=== PATIENT | male | born 1995 | race Caucasian/White ===

== ENCOUNTER 2023-10-19 22:48 | Emergency (ER) | payer OTHER ==
--- NOTE | 2023-10-19 23:21 | ED Physician Documentation ---
History of Present Illness - Stated complaint Stated Complaint: SOA - Chief complaint Chief Complaint: Resp - History obtained from History obtained from: Patient - Additonal information Additional information: 27-year-old man with no past medical history, with family history of asthma in siblings, presents with 4 to 5 hours of shortness of breath, audible wheezing, coughing with end expiration that is nonproductive. Also with nasal congestion that he states is chronic. Denies fever, chest pain, pleurisy, leg swelling, calf pain, hemoptysis, use of steroids. He did travel from [place] by car. Review of Systems Constitutional: denies: Fever, Chills Nose: reports: Congestion. denies: Rhinorrhea / runny nose Throat: denies: Sore throat Cardiac: denies: Chest pain / pressure, Palpitations, Pedal edema, Calf pain Respiratory: reports: Dyspnea, Cough, Wheezing. denies: Hemoptysis GI: denies: Abdominal Pain, Nausea, Vomiting PD PAST MEDICAL HISTORY - Past Medical History Past Medical History: No - Past Surgical History Past Surgical History: No - Present Medications Home Medications: Ambulatory Orders Medication Instructions Recorded Confirmed Albuterol Sulf [Ventolin Hfa 1 - 2 puffs INH Q4HR PRN #18 gm 10/19/23 Inhaler] - Allergies Allergies/Adverse Reactions: Allergies Allergy/AdvReac Type Severity Reaction Status Date / Time No Known Drug Allergies Allergy Verified 10/19/23 22:58 - Social History Does the pt smoke?: No Smoking Status: Never smoker Does the pt drink ETOH?: No Does the pt have substance abuse?: No - Immunizations Immunizations are current?: Yes - POLST Patient has POLST: No PD ED PE NORMAL - Vitals Vital signs reviewed: Yes - General General: Alert and oriented X 3, No acute distress, Well developed/nourished - HEENT HEENT: Atraumatic, PERRL, EOMI, Moist mucous membranes, Pharynx benign - Neck Neck: Supple, no meningeal sign - Cardiac Cardiac: RRR - Respiratory Respiratory: No respiratory distress, Other (Bilateral end expiratory wheezing. No increased work of breathing) - Derm Derm: Normal color, Warm and dry - Extremities Extremities: No deformity, No tenderness to palpate, No edema, No calf tenderness / cord Results - Vitals Vitals: Vital Signs - 24 hr 02/10/19/23 10/19/23 22:50 23:00 23:35 Temperature 36.0 C L Heart Rate 73 75 72 Respiratory 20 20 22 Rate Blood Pressure 164/92 H 159/82 H 144/78 H O2 Saturation 95 96 94 10/20/23 10/20/23 00:09 01:11 Temperature 36.0 C L Heart Rate 112 H 93 Respiratory 22 24 Rate Blood Pressure 142/79 H 137/82 H O2 Saturation 97 95 Oxygen O2 Source Room air - Labs Labs: Laboratory Tests 10/19/23 23:20 Nasal Adenovirus (PCR) NOT DETECTED Nasal B. parapertussis DNA (PCR) NOT DETECTED Nasal Coronavir 229E PCR NOT DETECTED Nasal Coronavir HKU1 PCR NOT DETECTED Nasal Coronavir NL63 PCR NOT DETECTED Nasal Coronavir OC43 PCR NOT DETECTED Nasal Enterovir/Rhinovir PCR DETECTED A Nasal Influenza B PCR NOT DETECTED Nasal Influenza A PCR NOT DETECTED Nasal Parainfluen 1 PCR NOT DETECTED Nasal Parainfluen 2 PCR NOT DETECTED Nasal Parainfluen 3 PCR NOT DETECTED Nasal Parainfluen 4 PCR NOT DETECTED Nasal RSV (PCR) NOT DETECTED Nasal B.pertussis DNA PCR NOT DETECTED Nasal C.pneumoniae (PCR) NOT DETECTED Jameson Human Metapneumo PCR NOT DETECTED Nasal M.pneumoniae (PCR) NOT DETECTED Nasal SARS-CoV-2 (PCR) NOT DETECTED PD Medical Decision Making - ED course ED course: 27-year-old man with family history of asthma presents with shortness of breath, wheezing, and nonproductive cough for the past 4 to 5 hours. He is maintaining saturation 95% on room air with good waveform here in the emergency department with normal heart rate and other vital signs. Does have some wheezing on lung auscultation therefore will benefit from DuoNeb and nebulized albuterol treatment. Doubt PE given he has no risk factors aside from recent travel though he spent <6h immobile at one time. Doubt pneumonia given CXR clear, no fever/chills. Patient improved status post breathing treatments. Chest x-ray reviewed and negative. He will be able to follow-up with his RVP with his primary care provider. Return precautions given. Prescriptions sent electronically to [facility] pharmacy for albuterol inhaler. Departure - Departure Disposition: 01 Home, Self Care Clinical Impression: Wheezing, Shortness of breath, Cough, Enterovirus infection, Rhinovirus Condition: Good Instructions: ED Reactive Airway Disease Prescriptions: Albuterol Sulf [Ventolin Hfa Inhaler] 1 - 2 puffs INH Q4HR PRN #18 gm PRN Reason: Shortness Of Air/Wheezing Comments: You were seen in the emergency department for wheezing and shortness of breath and received albuterol/ipratropium breathing treatments by nebulizer. Prescription sent for albuterol inhaler to [facility] in [place]. Viral nose swab came up positive for enterovirus/rhinovirus, which are viruses that cause the common cold. Please follow-up with your primary care provider regarding these findings as well as for possible further testing and return to the emergency department if you have any new or worsening symptoms or other concerns. Forms: PCP List
[2023-10-19] MEDS: ALBUTEROL NEB 2.5 MG/3 ML INH STA (23:35)
[2023-10-19] MEDS: IPRATROPIUM/ALBUTEROL 3 ML NEB INH STA (23:35)
[2023-10-20 00:14] LABS: CORONAVIRUS 229E-RESP PCR NOT DETECTED; CORONAVIRUS HKU1-RESP PCR NOT DETECTED; CORONAVIRUS NL63-RESP PCR NOT DETECTED
[2023-10-20 00:15] LABS: B. PARAPERTUSSIS- RESP PCR PAN NOT DETECTED; B. PERTUSSIS- RESP PCR PANEL NOT DETECTED; C. PNEUMONIAE- RESP PCR PANEL NOT DETECTED; CORONAVIRUS OC43-RESP PCR NOT DETECTED; HUMAN METAPNEUMOVIRUS NOT DETECTED; INFLUENZA A- RESP PCR PANEL NOT DETECTED; INFLUENZA B - RESP PCR PANEL NOT DETECTED; M. PNEUMONIAE- RESP PCR PANEL NOT DETECTED; PARAINFLUENZA VIRUS 1 NOT DETECTED; PARAINFLUENZA VIRUS 2 NOT DETECTED; PARAINFLUENZA VIRUS 3 NOT DETECTED; PARAINFLUENZA VIRUS 4 NOT DETECTED; RHINOVIRUS/ENTEROVIRUS DETECTED; RSV- RESP PCR PANEL NOT DETECTED; SARS-CoV-2 -RESP PCR PANEL NOT DETECTED
--- NOTE | 2023-10-20 00:17 | XRAY Report ---
PROCEDURE: Chest 2V INDICATIONS: cough, soa, wheezing TECHNIQUE: 2 views of the chest were acquired. COMPARISON: None. FINDINGS: Surgical changes and devices: None. Lungs and pleura: Left costophrenic angles not visualized. No pleural effusions or pneumothorax. Carey ngs are clear. Mediastinum: Mediastinal contours appear normal. Heart size is normal. Bones and chest wall: No suspicious bony lesions. Overlying soft tissues appear unremarkable. IMPRESSION: Left costophrenic angle is not visualized limiting full evaluation of the chest. No significant pleur al effusion or pneumothorax. No focal airspace consolidation. Reviewed by: Dunia Vaughn MD on 10/20/2023 12:15 AM PST Approved by: Dunia Vaughn MD on 10/20/2023 12:15 AM PST Station ID: [id number]
[2023-10-20 01:20] VITALS: BP 137/82; O2SAT 95
== END 2023-10-20 01:30 | disposition home or self-care (01) ==
LOC: ED 22:48
DX: B34.1 Enterovirus infection, unspecified (principal)
CPT/HCPCS: 87633; 94640; 99283; 99284

== ENCOUNTER 2023-11-16 09:56 | Outpatient (CLI) | payer OTHER ==
--- NOTE | 2023-11-16 10:44 | Sleep Patient Instructions ---
Sleep Center Visit Summary - Patient Visit Information Reason for Visit: Initial consult for evaluation of sleep disordered breathing and other sleep issues. - Patient Instructions Instructions Attached: Sleep Study Additional Instructions: You will be completing a sleep study, either an in-lab polysomnography (PSG) or home sleep study (HST). You will follow-up in the sleep care office after the sleep study is completed to hear the results and talk about therapy, if needed. You will be called by our office staff to schedule this appointment, but you may contact us with any questions. - Clinic Information Contact: [facility] [address] [place] [address] [email or web address] T: [phone]
--- NOTE | 2023-11-16 10:48 | SLEEP CARE CONSULTATION ---
Information from patient questionnaire entered by Angus Reyez. I have reviewed and concur with the information entered by Angus Reyez. This document represents the service I personally performed and the decisions made by me, Montserrat Wylie ARNP. History of Present Illness Service Date and Time: 11/16/2023 0956 Reason for Visit: New patient Chief Complaint: reports: Insomnia, Unrefreshed sleep, Snoring, Excessive daytime sleepiness, Fatigue, Frequent awakenings at night Date of Onset: 8 months Usual bedtime: 2200 Time it takes to fall asleep: 2-4 hours Snores at night: Yes Observed to quit breathing while asleep: No Sleeps alone due to snoring: No Number of times waking at night: 3-6 Reasons for waking at night: reports: Snoring, Gasping for air, Other (Unknown reason). denies: Choking Toss, Turn, or Twitch while sleeping: Yes Recalls having dreams: No (usually don't have dreams) Usually gets out of bed at: 3052-5317 Feels refreshed in the morning: No Morning headache: Yes (1 time a week; 1-2 hours after waking) Sleepy or fatigued during the day: Yes Ever fallen asleep while driving: No Takes day naps: Yes (1-2 times a week, usually unintentional; if tries cannot fall asleep) Dreams during day naps: No Prior sleep studies: No Additional HPI information: I had the pleasure of seeing RACHAEL FRANCIS today regarding the possibility of him having a sleep disorder. His current complaints are excessive daytime sleepiness, fatigue, frequent night awakenings, insomnia, snoring and unrefreshed sleep. He says he struggles to fall asleep and will wake up several times a night. He is tired throughout the say, is "always tired". He has been told he snores but his girlfriend will stay in same room to sleep. He does say that his snoring "annoys" her. He says she has never said he stopped breathing when sleeping. He has had times where he woke up feeling like he was gasping for air and has woke himself up with snoring as well. He does not wake up feeling refreshed and occasionally does have headaches in the morning. When he is very tired he feels like his concentration is affected. He denies a significant medical history or any family members with snoring or sleep apnea. - Parasomnia Symptoms Ever been unable to move upon waking from sleep: No Walks in sleep: No Talks in sleep: No Ever acted out dreams in sleep: No Ever felt weak in the knees when startled or emotional: No Bothered by creepy, crawly, restless sensations in legs: Yes (sometimes; happens in bed) Problems with memory or concentration: Yes (both; really struggles with concentration on days he is tired/short sleep) Subjective Initial [place] Sleepiness Scale score: 17 (in 2023) Past Medical History Past Medical History: reports: Other (no significant medical history) Social History The patient's occupation is a active duty . Patient is single and lives in [place]. Have you smoked in the past 12 months: No Alcohol use: Yes Alcohol amount and frequency: 1-2, 2-3 times a month Caffeine use: Yes Caffeine amount and frequency: 1, 1-2 times a week Family History Family history of sleep disordered breathing: No Allergies and Home Medications Known drug allergies: No Drug allergies reviewed: Yes Home medication list reviewed: Yes Allergy and home medication list: Allergies No Known Drug Allergies Allergy (Verified 11/14/23 13:35) Home Medications Medication Instructions Recorded Confirmed Last Taken Type No Known Home Medications 11/16/23 11/16/23 Unknown History Review of Systems Weight gain over past 5 years: 60, currently up on weight Weight loss over past 5 years: 80 Cardiovascular: denies: high blood pressure Respiratory: denies: shortness of breath Gastrointestinal: reports: nausea Neurological: reports: headaches Psychiatric: denies: anxiety, depression Ear/Nose/Throat: reports: nasal congestion, wisdom teeth removed. denies: tonsillectomy Endocrine: reports: sluggishness (/tired) Musculoskeletal: reports: joint pain (/stiffness), back pain Physical Exam Vital signs obtained and entered by: Montserrat Huston NP Blood Pressure: 132/89 Cuff size: regular (left arm) Heart Rate: 67 O2 Saturation: 97 Height: 5 ft 11 in Weight: 256 lb 12.8 oz Body Mass Index: 35.8 BMI Classification: Obese Neck circumference: 16.5 (inches) Mouth and throat: normal Soft palate: long Hard palate: normal Uvula: normal Uvula visualization: 100% Mallampati Class I Tongue: enlarged in size with teeth quiñones on lateral edges Tonsils: 1+ Neck: normal w/o lymphadenopathy or thyromegaly Heart: regular rate and rhythm Lungs: clear bilaterally Impression and Plan 1. Suspected Obstructive Sleep Apnea-Hypopnea Syndrome, as suggested by a history of loud and irregular snoring, gasping or choking in sleep, morning headache, frequent awakening during the night, unrefreshed sleep, cognitive impairment, and excessive daytime sleepiness. Narrow oropharynx and obesity are common predisposing factors for obstructive sleep apnea-hypopnea syndrome. I recommend proceeding to polysomnography to confirm the diagnosis and to assess severity. If the patient has significant sleep disordered breathing, a manual CPAP titration study will also be performed to find the optimal treatment pressure. I informed the patient of what the sleep studies involve and after some discussion, obtained agreement to proceed. The pathophysiology of obstructive sleep apnea-hypopnea syndrome was discussed with the patient and health risks of cardiovascular and cerebrovascular disease if not treated. Risks of drowsy driving discussed in detail and patient advised to avoid long distance driving and to press puller at the first sign of drowsiness. Patient agreed to plan. * Schedule polysomnography. * Avoid long distance driving or driving when feeling sleepy. * Avoid alcohol, sedative and muscle relaxant around bedtime. * Attempt to lose weight. * Review instructions provided by trained office staff on how to prepare for the sleep study. * Return for follow-up after sleep study completed. Counseling Topics: Weight loss health impact Follow up with Sleep Care in: other (after sleep study to go over results) Plan: PSG/HST Visit Type: In Office Time Spent with Patient (minutes): 30 Provider Statement: I spent 100% of the Face to Face Visit with the patient with greater than 50% spent counseling the patient and coordination of care.
[2023-11-16 10:51] VITALS: BP 132/89; O2SAT 97
== END 2023-11-16 09:57 | disposition home or self-care (01) ==
LOC: SC 09:56
PROVIDERS: ATTEND Nurse Practitioner Family
DX: R06.83 Snoring (principal); R51.9 Headache, unspecified; G47.8 Other sleep disorders; G47.10 Hypersomnia, unspecified
CPT/HCPCS: 99203; 99212

== ENCOUNTER 2023-12-11 20:38 | Outpatient (CLI) | payer OTHER | END 2023-12-11 20:39 | disposition home or self-care (01) | LOC: SC 20:38 | PROVIDERS: ATTEND Nurse Practitioner Family | DX: G47.33 Obstructive sleep apnea (adult) (pediatric) (principal); E66.9 Obesity, unspecified; Z68.35 Body mass index [BMI] 35.0-35.9, adult | CPT/HCPCS: 95810 ==

== ENCOUNTER 2023-12-19 11:47 | Outpatient (CLI) | payer OTHER ==
--- NOTE | 2023-12-19 10:14 | SLEEP CARE CONSULTATION ---
Information from patient questionnaire entered by Brooke Hua. I have reviewed and concur with the information entered by Brooke Hua. This document represents the service I personally performed and the decisions made by me, Montserrat Wylie ARNP. History of Present Illness Service Date and Time: 12/19/2023 1000 Initial [place] Sleepiness Scale score: 17 (in 2023) Current [place] Sleepiness Scale score: 9 (12/19/23) Additional HPI information: RACHAEL FRANCIS returns via video appointment for follow up and results of the recently performed polysomnography. The sleep study showed mild obstructive sleep apnea with an average AHI of 7.3 and anthony oxygen saturation of 86%. I explained the pathophysiology behind obstructive sleep apnea. We then spent quite a bit of time discussing different treatment options. For mild obst ructive sleep apnea, surgery and oral appliance are alternatives to nasal CPAP therapy but in moderate or severe cases, nasal CPAP is the most effective and reliable treatment. Because apnea is primarily in supine position, then positional management therapy could be effective. Methods discussed such as positioning with pillows, using a T-shirt with tennis balls in the back or commercial products that have a pillow format on back to prevent supine sleep. I reviewed the impact of weight changes on sleep apnea and strongly recommended losing weight. After some discussion, the patient opted to go with the nasal CPAP therapy. Nasal autoCPAP set at 4-15 cmH20 will be ordered with rationale explained. A manual titration study will be ordered if unable to find optimal pressure with office adjustments. I explained how CPAP machine works and what to expect when using the machine. Using CPAP every night in order to get used to it was emphasized. Patient advised to put CPAP mask on before getting into bed so as not to fall asleep without CPAP. To assist acclimation to CPAP use, it could also be used for a short time during day while reading or watching TV. The patient was instructed to call the CPAP supplier to discuss any mechanical problem that may occur. If the mask given is uncomfortable or is difficult to keep on through the night even with adjustment, contact the CPAP supplier as many will replace with another mask style if notified before 30 days. If snoring or perceives is not getting enough air or too much air from the machine, notify this office. Patient counseled not drink alcohol less than 4 hours before bedtime as it can increase snoring and apnea. Patient was cautioned about risks of drowsy driving until sleepiness symptoms resolve. Patient denies drowsy driving. Sleep Study - Results Type of Sleep Study: Polysomnography (COMPLETED 12/11/23) Prior sleep studies: No Polysomnography/Home Sleep Study results: IMPRESSION: The quality of the study is good. The patient had normal sleep efficiency. The sleep architecture was abnormal for sleep fragmentation and reduced amount of time spent in REM and slow wave sleep (N3). Respiratory monitoring showed mild obstructive sleep apnea-hypopnea (AHI = 7.3) associated with frequent arousals, oxyhemoglobin desaturation and mild hypoxia (anthony oxygen saturation of 86%). The respiratory events occurred almost exclusively during supine sleep (supine AHI = 22.7; non-supine = 0.44). Snore was light to moderate in intensity. There was no significant periodic leg movement of sleep. Cardiac rhythm was normal sinus rhythm without significant arrhythmia. No abnormal behavior (parasomnia) observed during the night. Allergies and Home Medications Known drug allergies: No Drug allergies reviewed: Yes Home medication list reviewed: Yes (no changes) Allergy and home medication list: Allergies No Known Drug Allergies Allergy (Verified 11/14/23 13:35) Review of Systems Review of systems same as previous: Yes (NO CHANGE) Physical Exam Vital signs obtained and entered by: BROOKE Echeverria MA Height: 5 ft 9 in (PER PT) Weight: 240 lb (PER PT) Body Mass Index: 35.4 BMI Classification: Obese Impression and Plan 1. Obstructive Sleep Apnea-Hypopnea Syndrome, mild, with lowest oxygen saturation of 86%. Obviously this is the cause of the patients symptoms of unrefreshed sleep, and excessive daytime sleepiness. As mentioned above, the patient will be started on nasal autoCPAP therapy with pressure set at 4-15 cmH2 O. Compliance guidelines also reviewed. A copy of compliance guidelines will be given for reference at check out. Because the apnea is more severe supine, I instructed to avoid sleeping supine using pillow positioning until able to start CPAP use. 2. Obesity, unspecified. Currently patients BMI is 35.4. Obesity increases the risk of apnea, CPAP pressure requirements and overall health risks especially cardiovascular and diabetes. Thus patient is advised to lose weight. * Nasal auto CPAP therapy, pressure at 4-15 cm H2O. * Attempt to lose weight. * Avoid alcohol consumption near bedtime. * Avoid supine sleep until using CPAP. * The patient is again cautioned about driving until sleepiness completely resolves. * Return one month after CPAP obtained. I will assess response to therapy and compliance at that time. Counseling Topics: Sleeping position, Weight loss health impact Prescriptions: Auto CPAP Plan: CPAP setup and compliance follow up Visit Type: Telehealth Phone Video Type: Doximity Patient Location: Work Location of Provider: Office Patient agrees and consents to this telehealth visit type: Yes Time Spent with Patient (minutes): 20 Provider Statement: I spent 100% of the Telehealth Phone Call with the patient with greater than 50% spent counseling the patient and coordination of care.
== END 2023-12-19 11:48 | disposition home or self-care (01) ==
LOC: SC 11:47
PROVIDERS: ATTEND Nurse Practitioner Family
DX: G47.33 Obstructive sleep apnea (adult) (pediatric) (principal); E66.9 Obesity, unspecified; Z68.35 Body mass index [BMI] 35.0-35.9, adult
CPT/HCPCS: 99442

== ENCOUNTER 2024-04-18 12:57 | Outpatient (CLI) | payer OTHER ==
[2024-04-18] MEDS: ALBUTEROL 1 PUFF INH STA (14:19)
== END 2024-04-18 12:58 | disposition home or self-care (01) ==
LOC: RT 12:57
PROVIDERS: ATTEND Preventive Medicine Aerospace Medicine
DX: R06.09 Other forms of dyspnea (principal); R06.02 Shortness of breath
CPT/HCPCS: 94060